=== PATIENT | female | born 1985 | race Caucasian/White ===

== ENCOUNTER 2018-06-27 08:36 | Emergency (ER) | payer BC ==
[~2018-06-27] VITALS: Ht 172.7 cm; Wt 162.4 kg
[2018-06-27 08:57] VITALS: Ht 172.7 cm; Wt 162.4 kg
[2018-06-27 11:32] VITALS: BP 132/78
== END 2018-06-27 11:33 | disposition home or self-care (01) ==
LOC: ED 08:36
DX: M62.830 Muscle spasm of back (principal); Z88.1 Allergy status to other antibiotic agents
CPT/HCPCS: 72072; J1885